=== PATIENT | female | born 1955 | race Asian ===

== ENCOUNTER → 2024-03-12 13:33 | Outpatient (REF) | payer MEDICARE, BC, SELFPAY | LOC: HWRAD 13:33 | PROVIDERS: ATTENDING PHYSICIAN Urology; FAMILY PHYSICIAN Internal Medicine | DX: R31.21 Asymptomatic microscopic hematuria (principal) | CPT/HCPCS: 74178; Q9967 ==

== ENCOUNTER 2025-08-27 17:04 | Emergency (ER) | payer MEDICARE, BC, SELFPAY ==
[2025-08-27] VITALS (7 sets, daily range): BP systolic 104–123; BP diastolic 54–69; BMI 26.5
[2025-08-27 18:03] LABS: Hematocrit 40.2 % (37.0-47.0); Hemoglobin 13.5 g/dL (12.0-16.0); Mean Corp Hgb Conc. 33.6 g/dL (33.0-37.0); Mean Corpuscular Volume 94.8 fL (81.0-99.0); Nucleated Red Blood Cells % 0 %; Platelet Count 209 10^3/uL (130-400); Red Cell Dist. Width 12.6 % (11.5-14.5)
--- NOTE | 2025-08-27 18:17 | ED.GENMED ---
History of Present Illness
<Luther Leach MD, Resident - Last Filed: 08/28/25 00:44>
General
Chief Complaint: Rectal Bleeding
Source: patient and family
Exam Limitations: none
Time Seen by Provider: 08/27/25 17:50
History of Present Illness
History of Present Illness:
69-year-old female who presents with sudden onset, gradually progressive sharp lower left abdominal pain since about 2 hours ago associated with dark-colored stools followed by watery stools when she went to the bathroom this morning. Relieved on
taking acetaminophen. She is not on any blood thinners. No fever, chills, nausea, vomiting, tenesmus, headache, lightheadedness, dizziness, shortness of breath, weight loss. No previous history of hemorrhoids, diverticulosis/diverticulitis.No
recent travel or infection. She has a medical history of hypertension, diabetes mellitus, hyperlipidemia.
Past History
<Luther Leach MD, Resident - Last Filed: 08/28/25 00:44>
Past History
ED Past Medical History: HTN and Hypercholesterolemia
ED Past Surgical History: Other
Social History
Tobacco: Non-smoker
Alcohol: None
Drug: None
Personal:
Living: with family
Employment: Employed
Family History
Family History: Other
Review of Systems
<Luther Leach MD, Resident - Last Filed: 08/28/25 00:44>
Review of Systems
Allergies reviewed?: Yes
Other source history: family
All Other Systems: ROS reviewed and negative except as documented in HPI and ROS
Phy Exam
<Luther Leach MD, Resident - Last Filed: 08/28/25 00:44>
General Physical Exam
General Presentation: well appearing and no apparent distress
General Habitus: elderly
General Mental: alert
Cardiovascular Exam
Cardiovascular Exam: regular rate/rhythm and no edema
Pulmonary Exam
Pulmonary Exam: lungs clear and no respiratory distress
Gastrointestinal Exam
Gastrointestinal Exam: normal bowel sounds, soft, non distended and tender (tenderness to palpation left lower quadrant)
Neurological Exam
Neurological Exam: alert and oriented x3
Musculoskeletal Exam
Musculoskeletal Exam: full ROM
Skin Exam
Skin Exam: normal color, warm/dry and no rash
Psychiatric Exam
Psychiatric Exam: normal mood/affect
Course
<Luther Leach MD, Resident - Last Filed: 08/28/25 00:44>
Orders/Labs/Results
Orders:
Orders
08/27/25 17:53
Type And Crossmatch [Type+Screen] Urgent
Complete Blood Count/With Diff Urgent
Comprehensive Metabolic Panel Urgent
08/27/25 18:34
Abdomen/Pelvis w Contrast CT [CT Abd/pelvis W Iv Cont] Urgent
Comment:
Reason For Exam: left lower quadrant abdominal tenderness
08/27/25 21:18
0.9% Sodium Chloride 1000 ml [Nss] 1,000 ml IV BOLUS
08/27/25 23:04
Simethicone [Mylicon] 80 mg PO NOW STA
Abnormal Lab Results
08/27/25
17:53
WBC 12.5 H 10^3/uL
(4.8-10.8)
MCH 31.8 H pg
(27.0-31.0)
Absolute Neuts (auto) 10.2 H 10^3/uL
(1.4-6.5)
Neutrophils % 81.7 H %
(42.2-75.2)
Lymphocytes % 12.8 L %
(20.5-51.1)
BUN 19 H mg/dl
(7-17)
Creatinine 1.1 H mg/dL
(0.6-1.0)
Glucose 270 H mg/dl
(70-99)
08/27/25 17:53
08/27/25 17:53
Vital Signs
Initial and Last Documented VS:
Initial Vital Signs
Temp Pulse Resp BP Pulse Ox
98.2 F 61 18 104/62 95
08/27/25 17:11 08/27/25 17:11 08/27/25 17:11 08/27/25 17:11 08/27/25 17:11
Last Documented Vital Signs
Temp Pulse Resp BP Pulse Ox
98.2 F 72 18 120/56 94
08/27/25 17:11 08/27/25 22:15 08/27/25 22:15 08/27/25 22:00 08/27/25 22:15
<Trenton Ba, DO - Last Filed: 08/27/25 22:55>
Orders/Labs/Results
Orders:
Orders
08/27/25 17:53
Type And Crossmatch [Type+Screen] Urgent
Complete Blood Count/With Diff Urgent
Comprehensive Metabolic Panel Urgent
08/27/25 18:34
Abdomen/Pelvis w Contrast CT [CT Abd/pelvis W Iv Cont] Urgent
Comment:
Reason For Exam: left lower quadrant abdominal tenderness
08/27/25 21:18
0.9% Sodium Chloride 1000 ml [Nss] 1,000 ml IV BOLUS
08/27/25 23:04
Simethicone [Mylicon] 80 mg PO NOW STA
Abnormal Lab Results
08/27/25
17:53
WBC 12.5 H 10^3/uL
(4.8-10.8)
MCH 31.8 H pg
(27.0-31.0)
Absolute Neuts (auto) 10.2 H 10^3/uL
(1.4-6.5)
Neutrophils % 81.7 H %
(42.2-75.2)
Lymphocytes % 12.8 L %
(20.5-51.1)
BUN 19 H mg/dl
(7-17)
Creatinine 1.1 H mg/dL
(0.6-1.0)
Glucose 270 H mg/dl
(70-99)
08/27/25 17:53
08/27/25 17:53
Vital Signs
Initial and Last Documented VS:
Initial Vital Signs
Temp Pulse Resp BP Pulse Ox
98.2 F 61 18 104/62 95
08/27/25 17:11 08/27/25 17:11 08/27/25 17:11 08/27/25 17:11 08/27/25 17:11
Last Documented Vital Signs
Temp Pulse Resp BP Pulse Ox
98.2 F 72 18 120/56 94
08/27/25 17:11 08/27/25 22:15 08/27/25 22:15 08/27/25 22:00 08/27/25 22:15
<Luther Leach MD, Resident - Last Filed: 08/28/25 00:44>
MDM/Problems Addressed
Differential Diagnosis Includes:
Diverticulitis, ischemic colitis, inflammatory bowel disease, hemorrhoids, anal fissure
MDM/Problems Addressed:
- CBC- mild leucocytosis otherwise unremarkable will observe liekly reactive
- CMP- Cr. 1.2 and BUN elevated, will administer 1 L fluids
- Type and screen performed
- CT of abdomen with IV contrast- unremarkable
Will discharge patient home with instructions to f/u with PCP and GI in 5 days
<Luther Leach MD, Resident - Last Filed: 08/28/25 00:44>
*Pulse Oximetry
SaO2: 99
Oxygen Mode of Delivery: Room air
Patient hypoxic: no
*Critical Care Note
Total Time (30-74mins, 75-104mins- exclusive of procedures): Not Applicable
ED Attending Note
<Luther Leach MD, Resident - Last Filed: 08/28/25 00:44>
-
Portions of this chart may have been created with voice recognition software.� Occasional wrong word or��sound alike� substitutions may have occurred due to the inherent limitations of voice recognition software.
<Trenton Ba, - Last Filed: 08/27/25 22:55>
ED Attending Note
Patient seen and examined by attending physician: Yes
I performed a history and physical exam of patient and discussed management with resident, I reviewed resident's note and agree with documented findings and plan of care.: Yes
ED Attending Note:
I reviewed and agree with history treatment plan by Luther Leach MD. My exam revealed 69-year-old female no acute distress. Mild left lower abdominal tenderness, no rebound or guarding. CT abdomen pelvis no acute findings.. Hemoglobin normal.
Patient stable for discharge and follow-up with gastroenterology.
Discharge Plan
Departure
Patient Disposition: Home (Routine Discharge)
Date of Disposition: 08/27/25
Time of Disposition: 22:55
Patient with high blood pressure during this ER visit?: No
Condition: Fair
Discharge Problem:
Abdominal pain
Instructions: Abdominal pain in adults (DC), Abdominal Pain
Prescriptions:
No Action
atorvastatin 20 MG tablet
20 mg PO HS
omeprazole 40 MG capsule,delayed release(DR/EC)
40 mg PO DAILY
losartan 25 MG tablet
25 mg PO DAILY
metformin 500 MG tablet extended release 24 hr
500 mg PO DAILY
Vitamin D3
1 cap PO DAILY
ondansetron 4 MG tablet,disintegrating
4 mg PO TIDPRN PRN (Reason: nausea) Qty: 10 0RF
Referrals:
Susi Gabriel DO [Active, Gastroenterology] - Follow up in 5-7 days
UNKNOWN - PT DOES,NOT KNOW [Family Provider]
Solange Cohen MD [Non-Admitting Privileges, Internal Medicine] - Follow up in 5-7 days
Activity Restrictions/Additional Instructions:
Patient evaluated for left lower quadrant abdominal pain. CBC shows mild leucocytosis and CMP shows elevated Cr at 1.1. Administered [address] scan unremarkable for any concerning findings. Please consult with PCP in 5 days and GI doctor
as well. ED return precautions listed below.
Thank you for visiting the Emergency Department at [facility].
1. Please schedule a follow up appointment as directed. Call first thing tomorrow morning to make an appointment.
2. If indicated, please take your medications as instructed and indicated on discharge paperwork.
3. If any of your symptoms do not improve, or persist, or become more severe within 6-12 hours, please return to the emergency department for further care.
4. Please return to the emergency department if you develop a headache, neck pain/stiffness, fever greater than 100.4F, chest pain, shortness of breath, persistent nausea, vomiting, slurred speech, difficulty walking, numbness/tingling, weakness,
signs of infection or any other symptoms that are worrisome to you.
Please call [phone] if you have any questions.
Interventions
Interventions:
*Risk Screen - Suicide Last Done: 08/27/25 17:11
*General Assessment Last Done: 08/27/25 17:44
*Neglect/Abuse Screening Last Done: 08/27/25 17:47
*ED- Fall Risk Assessment Last Done: 08/27/25 17:44
*ED COVID-19 Vaccine History Last Done: 08/27/25 17:44
*ED Influenza Vaccine History Last Done: 08/27/25 17:44
*Nursing Disposition Last Done: 08/27/25 23:15
RG-Fkmupn-Melcroopzj Assessment Last Done: 08/27/25 17:45
ED- Cardiac Assessment Last Done: 08/27/25 17:45
ED- Pulmonary Assessment Last Done: 08/27/25 17:45
Discharge Date and Time
Discharge Date/Time: 08/27/25 23:17
Print Language: BENGALI
[2025-08-27 18:22] LABS: ALT (SGPT) 26 U/L (0-35); AST (SGOT) 25 U/L (14-36); Albumin 4.2 g/dl (3.5-5.0); Alkaline Phosphatase 65 U/L (38-126); Blood Urea Nitrogen 19 mg/dl (7-17); Calcium 9.5 mg/dl (8.4-10.2); Carbon Dioxide 28 mmol/L (22-30); Chloride 106 mmol/L (98-107); Estimated Creatinine Clearance 41 ml/min; Glucose 270 mg/dl (70-99); Potassium 4.1 mmol/L (3.5-5.1); Sodium 139 mmol/L (135-145); Total Protein 6.5 g/dl (6.3-8.2); eGFR 54.39
[2025-08-27] MEDS: NSS 1000 IV (21:34)
[2025-08-27] MEDS: MYLICON 80 MG PO (23:06)
== END 2025-08-27 23:17 | disposition home or self-care (01) ==
LOC: EMR 17:04
PROVIDERS: EMERGENCY PHYSICIAN Emergency Medicine
DX: R10.9 Unspecified abdominal pain (principal); E11.9 Type 2 diabetes mellitus without complications; I10 Essential (primary) hypertension; E78.00 Pure hypercholesterolemia, unspecified; Z79.84 Long term (current) use of oral hypoglycemic drugs
CPT/HCPCS: 99284; 96360; 74177; 80053; 85025; 86850; 86900; 86901; Q9967

== ENCOUNTER 2025-09-12 06:20 | Day surgery (SDC) | payer MEDICARE, BC, SELFPAY | END 2025-09-12 15:21 | disposition home or self-care (01) | LOC: GI 06:20 | PROVIDERS: ATTENDING PHYSICIAN Internal Medicine Gastroenterology | DX: K62.5 Hemorrhage of anus and rectum (principal); R19.4 Change in bowel habit; K64.8 Other hemorrhoids; K57.30 Diverticulosis of large intestine without perforation or abscess without bleeding; R12 Heartburn; K44.9 Diaphragmatic hernia without obstruction or gangrene; K31.89 Other diseases of stomach and duodenum; D12.4 Benign neoplasm of descending colon; Z80.0 Family history of malignant neoplasm of digestive organs | CPT/HCPCS: 45380; 43239; 88305; 88342 ==